=== PATIENT | female | born 1975 | race Caucasian/White ===

== ENCOUNTER 2017-12-22 08:55 | Emergency (ER) | payer BC ==
[~2017-12-22] VITALS: Ht 160 cm; Wt 61.2 kg
[~2017-12-22 08:55] MED LIST: AZIT-21; DCS100C PO; ESTR1PAT28 TOP; HYDR-34 PO; IBP800T PO; NAPR-1071 PO; NAPR250T34; NFGUAR168P PO; OXYC-12 PO; POLY17PO23 GT
--- OUTSIDE RECORDS SUMMARY | 2017-12-22 09:03 | XMS REPORT | Continuity of Care Document ---
Author Author [facility] Address Unknown Phone Unavailable Allergies Active Description Code Type Severity Reaction Onset Reported/Identified Relationship to Patient Clinical Status Yes Penicillins [id number] Drug Allergy Mild RASH 11/30/2008 Medications There is no data. Problems Date Dx Coded Attending Type Code Diagnosis Diagnosed By 05/05/2009 ED JJ PHD 300.00 ANXIETY DISORDER NOS 05/05/2009 ED JJ PHD 338.2 CHRONIC PAIN 05/05/2009 ED JJ PHD 724.2 LUMBAGO 05/17/2009 ED JJ PHD 338.29 CHRONIC PAIN 05/31/2009 ED JJ PHD 338.4 CHRONIC PAIN SYNDROME 05/31/2009 ED JJ PHD V72.31 ROUTINE PELVIC EXAM 06/10/2009 DE JJ PHD 300.01 AN PANIC DIS W/O AGORA 06/10/2009 ED JJ PHD 307.89 OTHER PAIN DISORDERS RELATED TO PSYCHOLOGICAL FACTORS 06/21/2009 ED JJ PHD 465.9 ACUTE UPPER RESPIRATORY INFECTIONS OF UNSPECIFIED SITE 07/22/2009 ED JJ PHD 272.4 OTHER AND UNSPECIFIED HYPERLIPIDEMIA 07/22/2009 ED JJ PHD 795.01 ASCUS PAP 08/24/2009 ED JJ PHD 311 MO DEPRESS NOS 09/15/2009 ED JJ PHD 305.1 NONDEPENDENT ABUSE OF DRUGS, TOBACCO USE DISORDER 09/15/2009 ED JJ PHD 715.15 OSTEOARTHRITIS LOCALIZED PRIMARY - HIP RIGHT 10/11/2009 ED JJ PHD 305.1 NONDEPENDENT ABUSE OF DRUGS, TOBACCO USE DISORDER 10/11/2009 ED JJ PHD 530.81 ESOPHAGEAL REFLUX 11/25/2009 ED JJ PHD 300.21 AN PANIC DIS W AGORA 12/13/2009 PARVIZ HURLEY, ED [place] 720.2 SACROILIITIS, NOT ELSEWHERE CLASSIFIED 01/10/2010 ED JJ PHD 724.1 PAIN IN THORACIC SPINE 01/10/2010 ED JJ PHD 724.2 LUMBAGO 07/27/2010 Ot 620.1 CORPUS LUTEUM CYST 07/27/2010 Ot 620.2 OVARIAN CYST NEC/NOS 07/27/2010 Ot 620.8 NONINFL DIS OVA/ADNX NEC 07/27/2010 Ot 625.3 DYSMENORRHEA 05/08/2012 ED JJ PHD 300.4 MO DYSTHYMIC DISORDER 11/02/2015 Ot 617.9 ENDOMETRIOSIS NOS 11/02/2015 Ot 625.3 DYSMENORRHEA 11/02/2015 Ot 791.9 ABN URINE FINDINGS NEC 11/02/2015 Ot V72.63 PRE- PROCEDURAL LABORATORY EXAMINATION 11/02/2015 Ot V74.8 SCREEN- BACTERIAL DIS NEC 11/02/2015 TRISTIN YEN APRN Ot R07.89 OTHER CHEST PAIN 11/02/2015 Ot 617.9 ENDOMETRIOSIS NOS 11/02/2015 Ot 625.3 DYSMENORRHEA 11/02/2015 Ot 791.9 ABN URINE FINDINGS NEC 11/02/2015 Ot V72.63 PRE- PROCEDURAL LABORATORY EXAMINATION 11/02/2015 Ot V74.8 SCREEN- BACTERIAL DIS NEC 11/04/2015 TRISTIN YEN APRN Ot R07.89 OTHER CHEST PAIN 11/26/2015 TRISTIN YEN APRN Ot R07.89 OTHER CHEST PAIN Procedures Code [place] [address] PSYCH DIAG INTER EXAM 05/08/2012 Results There is no data. Encounters ACCT No. Visit Date/Time Discharge Status Pt. Type Provider Facility Loc./Unit Complaint [id number] 05/08/2012 07:56:00 05/08/2012 23:59:59 CLS Outpatient PARVIZ [place], [place] [id number] 06/28/2017 18:00:00 06/28/2017 23:59:59 CLS Outpatient [facility] [id number] 10/25/2017 07:22:00 10/25/2017 23:59:59 CLS Preadmit SANGITA MORROW APRN [facility] RAD SCREENING [id number] 11/13/2016 07:30:00 11/13/2016 23:59:59 CLS Preadmit SANGITA MORROW HEAD WAITER/WAITRESS [facility] RAD SCREENING [id number] 11/02/2015 11:09:00 11/02/2015 12:10:00 DIS Emergency TRISTIN YEN APRN [facility] ER [id number] 07/26/2010 05:49:00 Document Registration [id number] 07/25/2010 12:16:00 Document Registration
--- OUTSIDE RECORDS SUMMARY | 2017-12-22 09:03 | XMS REPORT ---
Author Author KITTY MANNING [facility] Address [address] [place] [address] Care Team Providers Care Blue Prints Trimmer Name Role Phone NIGEL KITTY Unavailable PROBLEMS Type Condition ICD9-CM Code [id number] Code Onset Dates Condition Status SNOMED Code Problem Adjustment disorder with mixed anxiety and depressed mood F43.23 Active 75027008 ALLERGIES Substance Reaction Event Type Date Status Penicillin G Sodium Unknown Drug Allergy Jun, Active ENCOUNTERS Encounter Location Date Diagnosis [facility] [id number] [place] [address] Jun, Cough R05 ; Other viral agents as the cause of diseases classified elsewhere B97.89 and Acute upper respiratory infection, unspecified J06.9 [facility] [id number] [place] [address] Dec, Adjustment disorder with mixed anxiety and depressed mood F43.23 [facility] [id number] [place] [address] Oct, Pain in right axilla M79.621 [facility] [id number] [place] [address] Jun, [facility] [id number] [place] [address] Jun, [facility] [id number] [place] [address] Apr, [facility] [id number] [place] [address] Apr, [facility] [id number] [place] [address] Apr, [facility] [address] [address] Sep, [facility] [address] [address] Aug, [facility] [address] [address] Jul, [facility] [address] [address] Jun, [facility] [address] [address] Jun, [facility] [id number] [place] [address] Jun, [facility] [address] [address] Jun, [facility] [address] [address] May, [facility] [address] [address] May, [facility] [address] [address] Apr, IMMUNIZATIONS No Known Immunizations SOCIAL HISTORY Never Assessed REASON FOR VISIT sore throat, burning chest, productive cough and fever started yesterday JStrasserRN PLAN OF CARE Activity Details Follow Up prn Reason: VITAL SIGNS Height 63 in 2017-06-28 Weight 143.4 lbs 2017-06-28 Temperature 97.5 degrees Fahrenheit 2017-06-28 Heart Rate 80 bpm 2017-06-28 Respiratory Rate 20 2017-06-28 BMI 25.40 kg/m2 2017-06-28 Blood pressure systolic 120 mmHg 2017-06-28 Blood pressure diastolic 80 mmHg 2017-06-28 MEDICATIONS Medication Instructions Dosage Frequency Start Date End Date Duration Status Methadone HCl Active RESULTS Name Result Date Reference Range INFLUENZA A & B (IN HOUSE) 2017-06-28 INFLUENZA A negative INFLUENZA B negative Control + Lot # [id number] Exp date 2019-10-06 PROCEDURES Procedure Date Ordered Result Body Site INFLUENZA ASSAY W/OPTIC Jun 28, 2017 INSTRUCTIONS MEDICATIONS ADMINISTERED No Known Medications
--- OUTSIDE RECORDS SUMMARY | 2017-12-22 09:03 | XMS REPORT ---
Author Author LINDA PAPPAS Organization [employer] Address Unknown Phone Unavailable Care Team Providers Care Photo Engraver Name Role Phone LINDA PAPPAS CP Unavailable Allergies, Adverse Reactions, Alerts Substance Reaction Event Type N.K.D.A. Info Not Available Non Drug Allergy Problems Problem Type Condition Code Onset Dates Condition Status Assessment Pain in right axilla M79.621 Active Problem Dysthymic disorder 300.4 Active Medications Medication Code System Code Instructions Start Date End Date Status Dosage Cyclobenzaprine HCl [facility] [address]-65 10 mg Orally Three times a day prn November 02, 2015 November 12, 2015 1 tablet Ibuprofen [facility] [address]-97 800 MG Orally Three times a day prn November 02, 2015 December 02, 2015 1 tablet Procedures Procedure Coding System Code Date Office Visit, Est Pt., Level 3 CPT-4 37160 November 02, 2015 Vital Signs Date/Time: November 02, 2015 Temperature 98 F Weight 146 lbs Height 63 in BMI 25.86 Index Blood Pressure Diastolic 72 mmHg Blood Pressure Systolic 108 mmHg Cardiac Monitoring Heart Rate 80 bpm Results No Known Results Summary Purpose [employer] Submission
[2017-12-22] MEDS ORDERED: METHADONE (09:12)
--- NOTE | 2017-12-22 09:24 | ED General ---
General Chief Complaint: General Problems/Pain Stated Complaint: DIZZY,LIGHTHEADED Nursing Triage Note: ARRIVED VIA AMB TO ROOM 07. SUDDEN ONSET OF DIZZINESS THAT STARTED AT WORK APPX 15 MINS AGO. STATES DIZZINESS IS GONE BUT IT CAUSED HER TO HAVE A PAINIC ATTACK. Nursing Sepsis Screen: No Definite Risk Source of Information: Patient Exam Limitations: No Limitations History of Present Illness Date Seen by Provider: Dec 22, 2017 Time Seen by Provider: 09:19 Initial Comments This 42-year-old white female presents with dizziness that began at work approximately 15 minutes before she presented the emergency department. The dizziness resolved but the patient had significant anxiety. The patient has had similar anxiety attacks in the past treated with Xanax. Unfortunately the patient developed a drug dependence on the Xanax which was ultimately discontinued. 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 Patient is under the care of Dr. Mc. Patient denies headache, stiff neck, chest pain, palpitations, shortness of breath, fever or chill, nausea, vomiting, diarrhea, dysuria or frequency. The patient denies the use of new medications or changes in her yyav-owk-hrollnp medication use. Patient relates that her anxiety is due to the loss of her a year ago and her best friend a month ago. Allergies and Home Medications Allergies Coded Allergies: Penicillins (Unverified Allergy, Mild, RASH, 11/30/08) Patient Home Medication List Home Medication List Reviewed: Yes Review of Systems Constitutional: No chills; dizziness; No fever EENTM: dental problems (patient has had gum pain from her new dentures.) Respiratory: No cough Cardiovascular: No chest pain Gastrointestinal: No abdominal pain, No diarrhea, No nausea, No vomiting Genitourinary: No dysuria, No frequency, No hematuria : No Musculoskeletal: No back pain Skin: No change in color, No rash Psychiatric/Neurological: See HPI, Anxiety, Depressed, Emotional Problems, Paresthesia Hematologic/Lymphatic: No Symptoms Reported Immunological/Allergic: no symptoms reported Past Orebpii-Zxvtgu-Ivmerr Hx Past Med/Social Hx: Reviewed Nursing Past Med/Soc Hx Patient Social History Alcohol Use: Denies Use Recreational Drug Use: No Smoking Status: Current Everyday Smoker Recent Foreign Travel: No Contact w/Someone Who Travel: No Recent Infectious Disease Expo: No Recent Hopitalizations: Yes (SURGERIES/CHILDBIRTH) Past Medical History Surgeries: Yes Appendectomy, Hysterectomy Respiratory: No Cardiac: No Neurological: No Reproductive Disorders: Yes (ENDOMETRIOSIS) Sexually Transmitted Disease: No Genitourinary: No Gastrointestinal: No Musculoskeletal: No Endocrine: No HEENT: No Cancer: No Did You Recieve Any Treatments: No Psychosocial: No Integumentary: No Blood Disorders: No Physical Exam Vital Signs Vital Signs - First Documented 12/22/17 08:58 Temp 97.8 Pulse 77 Resp 18 B/P (MAP) 141/70 (93) Pulse Ox 100 O2 Delivery Room Air Capillary Refill : Less Than 3 Seconds General Appearance: WD/WN, Anxious Eyes: Bilateral Eye Normal Inspection HEENT: Normal ENT Inspection Neck: Normal Inspection, Non Tender Respiratory: Lungs Clear, Normal Breath Sounds, No Accessory Muscle Use Cardiovascular: Regular Rate, Rhythm, No JVD, No Murmur Gastrointestinal: Normal Bowel Sounds, No Organomegaly, Non Tender, Soft Back: Normal Inspection Extremity: Normal Capillary Refill, Normal Inspection, Normal Range of Motion Neurologic/Psychiatric: Alert, Oriented x3, No Motor/Sensory Deficits Skin: Normal Color; No Rash Progress/Results/Core Measures Suspected Sepsis Recent Fever Within 48 Hours: No Infection Criteria Present: None New/Unexplained Altered Menta: No Sepsis Screen: No Definite Risk SIRS Temperature:97.8 Pulse: 77 Respiratory Rate: 18 Laboratory Tests 12/22/17 09:28: White Blood Count 6.6 Blood Pressure 141 /70 Mean: 93 Laboratory Tests 12/22/17 09:28: Creatinine 0.70, Platelet Count 385, Total Bilirubin 0.3 Results/Orders Lab Results Laboratory Tests Test 12/22/17 09:28 12/22/17 09:30 Range/Units White Blood Count 6.6 4.3-11.0 10^3/uL Red Blood Count 4.18 L 4.35-5.85 10^6/uL Hemoglobin 13.0 11.5-16.0 G/DL Hematocrit 37 35-52 % Mean Corpuscular Volume 88 80-99 FL Mean Corpuscular Hemoglobin 31 25-34 PG Mean Corpuscular Hemoglobin Concent 35 32-36 G/DL Red Cell Distribution Width 12.5 10.0-14.5 % Platelet Count 385 130-400 10^3/uL Mean Platelet Volume 9.0 7.4-10.4 FL Neutrophils (%) (Auto) 47 42-75 % Lymphocytes (%) (Auto) 39 12-44 % Monocytes (%) (Auto) 11 0-12 % Eosinophils (%) (Auto) 2 0-10 % Basophils (%) (Auto) 0 0-10 % Neutrophils # (Auto) 3.1 1.8-7.8 X 10^3 Lymphocytes # (Auto) 2.6 1.0-4.0 X 10^3 Monocytes # (Auto) 0.7 0.0-1.0 X 10^3 Eosinophils # (Auto) 0.2 0.0-0.3 10^3/uL Basophils # (Auto) 0.0 0.0-0.1 10^3/uL Sodium Level 140 135-145 MMOL/L Potassium Level 3.6 3.6-5.0 MMOL/L Chloride Level 102 98-107 MMOL/L Carbon Dioxide Level 26 21-32 MMOL/L Anion Gap 12 5-14 MMOL/L Blood Urea Nitrogen 5 L 7-18 MG/DL Creatinine 0.70 0.60-1.30 MG/DL Estimat Glomerular Filtration Rate > 60 BUN/Creatinine Ratio 7 Glucose Level 107 H 70-105 MG/DL Calcium Level 9.5 8.5-10.1 MG/DL Total Bilirubin 0.3 0.1-1.0 MG/DL Aspartate Amino Transf (AST/SGOT) 11 5-34 U/L Alanine Aminotransferase (ALT/SGPT) 11 0-55 U/L Alkaline Phosphatase 83 40-136 U/L Troponin I < 0.30 <0.30 NG/ML Total Protein 7.7 6.4-8.2 GM/DL Albumin 4.3 3.2-4.5 GM/DL Urine Color YELLOW Urine Clarity CLEAR Urine pH 6.5 5-9 Urine Specific Ava 1.010 L 1.016-1.022 Urine Protein NEGATIVE NEGATIVE Urine Glucose (UA) NEGATIVE NEGATIVE Urine Ketones NEGATIVE NEGATIVE Urine Nitrite NEGATIVE NEGATIVE Urine Bilirubin NEGATIVE NEGATIVE Urine Urobilinogen 1 NORMAL MG/DL Urine Leukocyte Esterase 2+ H NEGATIVE Urine RBC (Auto) 2+ H NEGATIVE Urine RBC 0-2 /HPF Urine WBC 2-5 /HPF Urine Squamous Epithelial Cells 2-5 /HPF Urine Crystals PRESENT H /LPF Urine Calcium Oxalate Crystals MODERATE H /LPF Urine Bacteria NEGATIVE /HPF Urine Casts NONE /LPF Urine Mucus NEGATIVE /LPF Urine Culture Indicated NO Urine Opiates Screen NEGATIVE NEGATIVE Urine Oxycodone Screen NEGATIVE NEGATIVE Urine Methadone Screen POSITIVE H NEGATIVE Urine Propoxyphene Screen NEGATIVE NEGATIVE Urine Barbiturates Screen NEGATIVE NEGATIVE Ur Tricyclic Antidepressants Screen NEGATIVE NEGATIVE Urine Phencyclidine Screen NEGATIVE NEGATIVE Urine Amphetamines Screen NEGATIVE NEGATIVE Urine Methamphetamines Screen NEGATIVE NEGATIVE Urine Benzodiazepines Screen NEGATIVE NEGATIVE Urine Cocaine Screen NEGATIVE NEGATIVE Urine Cannabinoids Screen NEGATIVE NEGATIVE My Orders Orders - VANESA PORTILLO MD Ekg Tracing (12/22/17 09:17) Ua Culture If Indicated (12/22/17 09:17) Comprehensive Metabolic Panel (12/22/17 09:17) Cbc With Automated Diff (12/22/17 09:17) Chest 1 View, Ap/Pa Only (12/22/17 09:17) Troponin I (12/22/17 09:17) Drug Screen Stat (Urine) (12/22/17 09:17) Vital Signs/I&O 12/22/17 08:58 Temp 97.8 Pulse 77 Resp 18 B/P (MAP) 141/70 (93) Pulse Ox 100 O2 Delivery Room Air Capillary Refill : Less Than 3 Seconds Blood Pressure Mean: 93 Progress Note : Time: 10:22 Progress Note The patient's EKG demonstrated a sinus rhythm without any acute current of injury. The patient had an unremarkable laboratory evaluation. A nonacute chest x-ray was obtained. I discussed the need for an anxiety antidepressant. The patient is agreeable to initiating Lexapro. I asked that the patient follow up closely with her care consultant on Sunday and to return the intermittent any problems or questions. Departure Impression Primary Impression: Anxiety and depression Disposition: HOME, SELF-CARE Condition: Unchanged Departure-Patient Inst. Decision time for Depature: 10:23 Referrals: LUIS MC MD (PCP) Primary Care Physician NO,LOCAL PHYSICIAN (Family) Primary Care Physician Patient Instructions: Anxiety, Adult (DC) Add. Discharge Instructions: Lexapro as prescribed. Close follow-up with her doctor on Sunday. Return if any problems or questions. All discharge instructions reviewed with patient and /or family. Voiced understanding. VANESA PORTILLO MD Dec 22, 2017 09:24
[2017-12-22 09:36] LABS: BASOPHILS % (AUTO) 0 % (0-10); EOSINOPHILS # (AUTO) 0.2 10^3/uL (0.0-0.3); EOSINOPHILS % (AUTO) 2 % (0-10); HEMATOCRIT 37 % (35-52); LYMPHOCYTES # (AUTO) 2.6 X 10^3 (1.0-4.0); LYMPHOCYTES % (AUTO) 39 % (12-44); MEAN CORPUSCULAR HEMOGLOBIN 31 PG (25-34); MEAN CORPUSCULAR HGB CONC 35 G/DL (32-36); MEAN CORPUSCULAR VOLUME 88 FL (80-99); MONOCYTES # (AUTO) 0.7 X 10^3 (0.0-1.0); MONOCYTES % (AUTO) 11 % (0-12); NEUTROPHILS # (AUTO) 3.1 X 10^3 (1.8-7.8); NEUTROPHILS % (AUTO) 47 % (42-75); PLATELET COUNT 385 10^3/uL (130-400); RED BLOOD COUNT 4.18 10^6/uL (4.35-5.85); RED CELL DISTRIBUTION WIDTH 12.5 % (10.0-14.5); WHITE BLOOD COUNT 6.6 10^3/uL (4.3-11.0)
[2017-12-22 09:41] LABS: BILIRUBIN,URINE NEGATIVE (NEGATIVE); CLARITY,URINE CLEAR; COLOR,URINE YELLOW; GLUCOSE, URINE (UA) NEGATIVE (NEGATIVE); KETONES,URINE NEGATIVE (NEGATIVE); LEUKOCYTE ESTERASE ,URINE 2+ (NEGATIVE); NITRITE,URINE NEGATIVE (NEGATIVE); PH,URINE 6.5 (5-9); PROTEIN,URINE NEGATIVE (NEGATIVE); UROBILINOGEN,URINE 1 MG/DL (NORMAL)
--- NOTE | 2017-12-22 09:54 | Diagnostic Imaging Report ---
Portable chest compared to prior examination from 11/02/2015. FINDINGS: There are chronic interstitial changes present within the lungs with diaphragmatic flattening suggesting underlying air trapping. There is no focal infiltrate or effusion. There is no pneumothorax. Heart size appears appropriate. Pulmonary vascularity appears normal. No acute osseous abnormality demonstrated. IMPRESSION: 1. Background features of interstitial lung disease with pulmonary hyperinflation and air trapping. Dictated by: Dictated on workstation # [id number]
[2017-12-22 09:55] LABS: AMPHETAMINE SCREEN, URINE NEGATIVE (NEGATIVE); BACTERIA,URINE NEGATIVE /HPF; BARBITURATE SCREEN URINE NEGATIVE (NEGATIVE); BENZODIAZEPINES SCREEN URINE NEGATIVE (NEGATIVE); CALCIUM OXALATE CRYSTALS,UR MODERATE /LPF; CANNABINOID SCREEN, URINE NEGATIVE (NEGATIVE); COCAINE SCREEN URINE NEGATIVE (NEGATIVE); METHADONE STAT POSITIVE (NEGATIVE); METHAMPHETAMINE SCREEN URINE S NEGATIVE (NEGATIVE); OPIATE SCREEN URINE NEGATIVE (NEGATIVE); OXYCODONE STAT NEGATIVE (NEGATIVE); PROPOXYPHENE STAT NEGATIVE (NEGATIVE); RBC,URINE 0-2 /HPF; TRICYCLIC ANTIDEPRESSANTS SCRE NEGATIVE (NEGATIVE)
[2017-12-22 10:00] LABS: ALANINE AMINOTRANSFERASE 11 U/L (0-55); ALBUMIN 4.3 GM/DL (3.2-4.5); ALKALINE PHOSPHATASE 83 U/L (40-136); BILIRUBIN,TOTAL 0.3 MG/DL (0.1-1.0); BUN/CREATININE RATIO 7; CALCIUM 9.5 MG/DL (8.5-10.1); CARBON DIOXIDE 26 MMOL/L (21-32); CHLORIDE 102 MMOL/L (98-107); GFR ESTIMATED > 60; GLUCOSE 107 MG/DL (70-105); POTASSIUM 3.6 MMOL/L (3.6-5.0); SODIUM 140 MMOL/L (135-145); TOTAL PROTEIN 7.7 GM/DL (6.4-8.2)
[2017-12-22 10:30] VITALS: BP 99/74
== END 2017-12-22 10:30 | disposition home or self-care (01) ==
LOC: EDUNIT# 08:55 → ER 08:58
DX: F41.8 Other specified anxiety disorders (principal); F17.210 Nicotine dependence, cigarettes, uncomplicated; Z90.49 Acquired absence of other specified parts of digestive tract; Z90.710 Acquired absence of both cervix and uterus; Z88.0 Allergy status to penicillin
CPT/HCPCS: 36415; 71045; 80053; 80306; 81000; 84484; 85025; 93005